=== PATIENT | female | born 1940 | race African-American/Black ===

== ENCOUNTER 2019-08-22 10:16 | Emergency (ER) | payer SELFPAY ==
[~2019-08-22] VITALS: Ht 167.6 cm; Wt 99.8 kg
[2019-08-22 10:23] VITALS: BP 137/83
== END 2019-08-22 11:05 | disposition home or self-care (01) ==
LOC: ER 10:19
DX: I10 Essential (primary) hypertension (principal); E78.5 Hyperlipidemia, unspecified; Z86.73 Personal history of transient ischemic attack (TIA), and cerebral infarction without residual deficits; Z76.0 Encounter for issue of repeat prescription

== ENCOUNTER 2024-06-29 16:22 | Inpatient (IN) | payer MEDICAID, OTHER ==
[~2024-06-29] VITALS: Ht 172.7 cm; Wt 83.1 kg
--- NOTE | 2024-06-29 18:08 | ED.PDOC ---
SOB-HPI HPI Comments 83Y F with PMHx CVA, HTN, and HLD presents to ED via EMS for chief complaint SOB [id number] with cough, congestion, and chest pain. Pt states chest pain is left- sided and non-radiating. Pt describes chest pain as pressure. Pt does not use oxygen supplementation at home. History is limited due to the patient's dysarthria from her prior stroke. Chief Complaint: Shortness of Breath Time Seen by MD: 18:00 Primary Care Provider: unknown Reviewed notes: Nurses Notes, Client Application Support Specialist Notes, Medications, Allergies Information Source: Patient, Emergency Med Personnel Mode of Arrival: EMS Brought in by: EMS Severity: Moderate Timing: Weeks Duration: Since onset Context: At Rest PE Risk Factors: None History of: None Prehospital treatment: 12 Lead EKG Modifying Factors: Nothing Associated Signs and Symptoms: Cough, Nasal Congestion, Chest Pain Quality: Pressure Radiation: No Radiation Location: Chest (L) If cough with SOB: Productive Past Medical History PAST MEDICAL HISTORY: CVA (With residual right-sided deficit), High Lipids, HTN Past Medical History (Other): AFib Surgical History: Denies all surgeries RN TRAVELING History: Denies all RN TRAVELING Hx Family History Family History: Reviewed,noncontributory to illness Social History Smoker: Non-Smoker Alcohol: Unknown Drugs: Unknown Lives In: Home Constitutional: denies: chills, diaphoresis, fatigue, fever, malaise, sweats, weakness, others EENTM: reports: nose congestion; denies: blurred vision, double vision, ear bleeding, ear discharge, ear drainage, ear pain, ear ringing, eye pain, eye redness, hearing loss, mouth pain, mouth swelling, nasal discharge, nose bleeding, nose pain, photophobia, tearing, throat pain, throat swelling, voice changes, others Respiratory: reports: cough, shortness of breath; denies: hemoptysis, orthopnea, SOB at rest, SOB with excertion, stridor, wheezing, others Cardiovascular: reports: chest pain; denies: dizzy spells, diaphoresis, Dyspnea on exertion, edema, irregular heart beat, left arm pain, lightheadedness, palpitations, PND, syncope, others Gastrointestinal: denies: abdomen distended, abdominal pain, blood streaked bowels, constipated, diarrhea, dysphagia, difficulty swallowing, hematemesis, melena, nausea, poor appetite, poor fluid intake, rectal bleeding, rectal pain, vomiting, others Genitourinary: denies: abnormal vagina bleeding, burning, dyspareunia, dysuria, flank pain, frequency, hematuria, incontinence, pain, , vagina discharge, urgency, others Neurological: denies: dizziness, fainting, headache, left sided numbness, left sided weakness, numbness, paresthesia, pre-existing deficit, right sided numbness, right sided weakness, seizure, speech problems, tingling, tremors, weakness, others Musculoskeletal: denies: back pain, gout, joint pain, joint swelling, muscle pain, muscle stiffness, neck pain, others Integumetry: denies: bruises, change in color, change in hair/nails, dryness, laceration, lesions, lumps, rash, wounds, others Allergic/Immunocompromised: denies: Difficulty Healing, Frequent Infections, Hives, Itching, others Hematologic/Lymphatic: denies: anemia, blood clots, easy bleeding, easy bruising, swollen glands, others Endocrine: denies: excessive hunger, excessive sweating, excessive thirst, excessive urination, flushing, intolerance to cold, intolerance to heat, unexplained weight gain, unexplained weight loss, others Psychiatric: denies: anxiety, bipolar disorder, depression, hopeless, panic disorder, schizophrenia, sleepless, suicidal, others All Other Systems: Reviewed and Negative Physical Exam General Appearance: No Apparent Distress HEENT: Other (Moist mucous membranes, pupils symmetric, right facial droop) Neck: Full Range of Motion, Normal Inspection Respiratory: No Respiratory Distress, Rales (Bilateral bases and mid lung yang) Cardiovascular: No JVD, Regular Rate/Rhythm Breast Exam: Deferred Gastrointestinal: Non Tender, Soft Genitalia: Deferred Pelvic: Deferred Rectal: Deferred Extremities: No calf tenderness, Non-tender, No pedal edema Musculoskeletal : Apperance: Normal Neurologic: Alert, Normal Affect, Normal Mood, Other (Chronic Right upper and lower extremity motor deficit, right facial droop, dysarthria) Cerebellar Function: NOT DONE Reflexes: NOT DONE Skin: Dry, Normal Color, Warm Lymphatic: NOT DONE EKG EKG : Comments AFib, rate 82, QRS prolonged at 138, QTC prolonged at 515, left axis deviation, right bundle-branch block and left anterior fascicular block, nonspecific T changes. Was a procedure done? Was a procedure done?: No Differential Dx Differential Diagnosis: CHF, COPD, Hyperventilation, Myocardial infarction, Pneumonia, Pulmonary Embolism, Respiratory Distress, URI X-Ray, Labs, Meds, VS Vital Signs Date Time Temp Pulse Resp B/P (MAP) Pulse Ox O2 Delivery O2 Flow Rate FiO2 06/29/24 18:30 16 89 Room Air* 0 21 06/29/24 16:33 82 06/29/24 16:28 99.6 96 20 146/90 (108) 96 Lab Test 06/29/24 20:50 06/29/24 20:01 06/29/24 18:40 Range/Units Sodium Level 139 136-145 mmol/L Potassium Level 3.0 L 3.5-5.1 mmol/L Chloride Level 102 98-107 mmol/L Carbon Dioxide Level 28 20-31 mmol/L Anion Gap 9 5-15 Blood Urea Nitrogen 6 L 9-23 mg/dL Creatinine 0.58 0.550-1.02 mg/dL Glomerular Filtration Rate Calc 89 >90 mL/min BUN/Creatinine Ratio 10.3 10.0-20.0 Serum Glucose 108 H 74-106 mg/dL Lactic Acid Level 2.7 *H 2.9 *H 0.4-2.0 mmol/L Calcium Level 9.1 8.7-10.4 mg/dL Troponin I High Sensitivity 6 6 </=34 ng/L White Blood Count 5.6 4.4-10.8 10^3/uL Red Blood Count 4.84 4.0-5.20 10^6/uL Hemoglobin 15.0 12.2-16.2 g/dL Hematocrit 46.0 36.0-46.0 % Mean Corpuscular Volume 95.2 80.0-100.0 fL Mean Corpuscular Hemoglobin 31.1 28.0-32.0 pg Mean Corpuscular Hemoglobin Concent 32.7 32.0-36.0 g/dL Red Cell Distribution Width 14.2 11.8-14.3 % Platelet Count 228 140-450 10^3/uL Mean Platelet Volume 9.5 6.9-10.8 fL Neutrophils (%) (Auto) 60.2 37.0-80.0 % Lymphocytes (%) (Auto) 29.0 10.0-50.0 % Monocytes (%) (Auto) 9.9 0.0-12.0 % Eosinophils (%) (Auto) 0.5 0.0-7.0 % Basophils (%) (Auto) 0.4 0.0-2.0 % Neutrophils # (Auto) 3.4 1.6-8.6 10 ^3/uL Lymphocytes # (Auto) 1.6 0.4-5.4 10 ^3/uL Monocytes # (Auto) 0.6 0-1.3 10 ^3/uL Eosinophils # (Auto) 0 0-0.8 10 ^3/uL Basophils # (Auto) 0 0-0.2 10 ^3/uL Nucleated Red Blood Cells 0.2 % B-Type Natriuretic Peptide 78.45 0-100 pg/mL Current Medications Medications (Trade) Dose Ordered Sig/Marcelo Route Start Time Stop Time Status Last Admin Albuterol (Ventolin Medneb) 2.5 mg ONCE ONCE NEB 06/29/24 17:45 06/29/24 17:46 DC 06/29/24 18:27 Ipratropium [place] (Atrovent Medneb) 0.5 mg ONCE ONCE NEB 06/29/24 17:45 06/29/24 17:46 DC 06/29/24 18:27 [place] [address] Ph: [phone] DIAGNOSTIC IMAGING Diagnostic Imaging Report : [id number] Signed PATIENT: NENITA PAULAACCT: [id number] UNIT: [id number] : 1940 LOC: ER ROOM / BED: / AGE / SEX: 83 / F ADM STATUS: REG ER SERVICE 41 ORDERING PHYSICIAN: ALVARO WATKINS MD PROCEDURE(s): CXRP - CHEST PORTABLE REASON: sob ORDER NUMBER(s): [id number], ACCESSION NUMBER(s): [id number] EXAM: XR Chest, 1 View CLINICAL INDICATION: sob TECHNIQUE: Frontal view of the chest. COMPARISON: None FINDINGS: LUNGS AND PLEURAL SPACES: Pulmonary venous congestion. No consolidation. No pneumothorax. HEART: Unremarkable. No cardiomegaly. MEDIASTINUM: Unremarkable. Normal mediastinal contour. BONES/JOINTS: Unremarkable. No acute fracture. OTHER FINDINGS: . . IMPRESSION: Pulmonary venous congestion. HS:Y ATED BY: LARRY ISRAEL MD DICTATED DATE/TIME: 06/29/241839 SIGNED BY: LARRY ISRAEL MD SIGNED DATE/TIME: 06/29/241839 CC: X-Ray, Labs, Meds, VS Comment 83-year-old female with a history of CVA, hypertension, hyperlipidemia and AFib brought in by EMS complaining of chest pain and shortness a breath Vitals remarkable for temperature 99.6, BP 146/90, and hypoxia on room air at 89%. Exam remarkable for bilateral rales Rhythm strip independently interpreted by me: AFib, rate 82, no PVCs. Chest x-ray: IMPRESSION: Pulmonary venous congestion. CBC and metabolic panel unremarkable, 2 serial troponins negative, BNP 78.45, lactate 2.9 Patient treated with the following in the ED: Albuterol 5 mg/Atrovent 0.5 mg nebulized, Tylenol 650 mg p.o., Lasix 40 mg IV On re-evaluation, patient is resting comfortably on nasal cannula oxygen. Oxygen saturation is 96%. Plan is to admit the patient for respiratory support as needed. Time of 1ST Reevaluation: 18:30 Reevaluation 1ST: Unchanged Patient Education/Counseling: Diagnosis, Treatment Family Education/Counseling: No Family Present Departure 1 Departure Time of Disposition: 22:01 Impression: Primary Impression: CHF exacerbation Qualified Codes: I50.9 - Heart failure, unspecified Additional Impression: Hypoxia Disposition: ADMITTED INPATIENT Admit to: Tele Condition: Guarded Critical Care Note Critical Care Time?: No Stability Stability form required: No Heart Score Heart Score: Heart Score Response (Comments) Value History N/A 0 EKG N/A 0 Age N/A 0 Risk Factors N/A 0 Troponin N/A 0 Total 0 I personally scribed for ALVARO WATKINS MD ([email or web address]) on 06/29/24 at 18:08. Electronically submitted by Frieda Tejeda ([email or web address]). I personally scribed for ALVARO WATKINS MD ([email or web address]) on 06/29/24 at 19:29. Electronically submitted by Ismael Brown ([email or web address]). ALVARO WATKINS MD Jun 29, 2024 18:08
[2024-06-29] MEDS: IPRATROPIUM BROM 0.5 MG/2.5ML INH SOL NEB ONE (18:27)
[2024-06-29] MEDS: ALBUTEROL SULF 2.5 MG/0.5ML(0.5%) NEB SOLN NEB ONE (18:27)
--- NOTE | 2024-06-29 18:42 | DVH ---
EXAM: XR Chest, 1 View CLINICAL INDICATION: sob TECHNIQUE: Frontal view of the chest. COMPARISON: None FINDINGS: LUNGS AND PLEURAL SPACES: Pulmonary venous congestion. No consolidation. No pneumothorax. HEART: Unremarkable. No cardiomegaly. MEDIASTINUM: Unremarkable. Normal mediastinal contour. BONES/JOINTS: Unremarkable. No acute fracture. OTHER FINDINGS: . . IMPRESSION: Pulmonary venous congestion. HS:Y
[2024-06-29 19:02] LABS: Basophils # (auto) 0 10 ^3/uL (0-0.2); Basophils % (auto) 0.4 % (0.0-2.0); Eosinophils # (auto) 0 10 ^3/uL (0-0.8); Eosinophils % (auto) 0.5 % (0.0-7.0); Lymphocytes # (auto) 1.6 10 ^3/uL (0.4-5.4); Mean Corpuscular Hemoglobin 31.1 pg (28.0-32.0); Mean Corpuscular Hgb Conc. 32.7 g/dL (32.0-36.0); Mean Corpuscular Volume 95.2 fL (80.0-100.0); Monocytes # (auto) 0.6 10 ^3/uL (0-1.3); Monocytes % (auto) 9.9 % (0.0-12.0); Neutrophils # (auto) 3.4 10 ^3/uL (1.6-8.6); Neutrophils % (auto) 60.2 % (37.0-80.0); Nucleated Red Blood Cells % 0.2 %; Platelet Count (auto) 228 10^3/uL (140-450); Red Blood Cells 4.84 10^6/uL (4.0-5.20); Red Cell Distribution Width 14.2 % (11.8-14.3); White Blood Cell 5.6 10^3/uL (4.4-10.8)
[2024-06-29 20:29] LABS: Lactic Acid w/Reflex 2.9 mmol/L (0.4-2.0)
[2024-06-29 21:19] LABS: Anion Gap 9 (5-15)
[2024-06-29 21:31] LABS: BUN/Creatinine Ratio 10.3 (10.0-20.0); Blood Urea Nitrogen 6 mg/dL (9-23); Calcium 9.1 mg/dL (8.7-10.4); Carbon Dioxide 28 mmol/L (20-31); Chloride 102 mmol/L (98-107); Glucose 108 mg/dL (74-106); Sodium 139 mmol/L (136-145)
[2024-06-29] MEDS: FUROSEMIDE 40 MG/4 ML VIAL IV ONE (21:45)
[2024-06-29] MEDS ORDERED: ONDANSETRON HCL 4 MG/2 ML VIAL IV PRN (22:15)
[2024-06-29] MEDS ORDERED: ACETAMINOPHEN 325 MG TAB PO PRN (22:15)
[2024-06-29] MEDS ORDERED: ALBUTEROL SULF 2.5 MG/0.5ML(0.5%) NEB SOLN NEB PRN (22:15)
[2024-06-29] MEDS ORDERED: HYDROcodone-ACET 5/325MG TAB PO PRN (22:15)
[2024-06-29 22:36] VITALS: BP 146/90; PULSE 82; RESP 16; TEMP 99.6; O2SAT 90
--- NOTE | 2024-06-29 22:44 | DVHHP2 ---
History of Present Illness Reason for Visit: Shortness of breath History of Present Illness 83-year-old female presents for evaluation of shortness for breath. Patient reports a two week history of worsening shortness for breath and with associated nonproductive cough. Patient is bed ridden secondary to CVA three years ago wi th right hemiparesis and speech difficulty. She also reports mild left-sided chest pain that is nonradiating. No fever or chills. No other acute complaints reported. Past Medical History Hypertension, dyslipidemia and CVA Past Surgical History None Family History Noncontributory Smoke: No ALCOHOL: none Drugs: None Lives: with Family Review of Systems Review of Systems Review of systems are currently negative otherwise addressed in HPI. Allergies: Coded Allergies: NO KNOWN ALLERGIES (Unverified , 08/22/19) Medications Current Medications Medications Dose Ordered Sig/Marcelo Route Start Time Stop Time Status Last Admin Dose Admin Metoprolol Tartrate 12.5 mg BID PO 06/30/24 10:00 UNV Lisinopril 10 mg DAILY PO 06/30/24 10:00 UNV Furosemide 40 mg DAILY PO 06/30/24 10:00 UNV Atorvastatin Calcium 20 mg HS PO 06/30/24 22:00 UNV Clopidogrel Bisulfate 75 mg DAILY PO 06/30/24 10:00 UNV Albuterol 2.5 mg Q6HPRN PRN NEB 06/29/24 22:15 UNV Azithromycin 250 ml @ 125 mls/hr DAILY IV 06/30/24 10:00 UNV Acetaminophen/ Hydrocodone Bitart 1 tab Q4HP PRN PO 06/29/24 22:15 UNV Ondansetron HCl 4 mg Q4HP PRN IV 06/29/24 22:15 UNV Enoxaparin Sodium 40 mg DAILY SC 06/30/24 10:00 UNV Acetaminophen 650 mg Q6HP PRN PO 06/29/24 22:15 UNV Exam Vital Signs Vital Signs Date Time Temp Pulse Resp B/P (MAP) Pulse Ox O2 Delivery O2 Flow Rate FiO2 06/29/24 22:36 99.6 82 16 146/90 90 21 99.6 06/29/24 18:30 Room Air* 0 Exam Gen: 83-year-old female in mild distress Skin: Warm, dry, normal color and texture, no rash. HEENT: Normocephalic atraumatic, mucous membranes moist and pink. Neck: Cervical and supraclavicular nodes normal without enlargement, trachea is midline, thyroid gland is normal without masses. Pulmonary: Diminished breath sounds bilaterally Cardiac: Regular rate and rhythm. No murmur Abdomen: Soft, nontender, nondistended, bowel sounds present all 4 quadrants, no guarding, no rigidity, no organomegaly. Extremities: No cyanosis, clubbing, no edema Neuro: Right-sided deficits from previous CVA and speech difficulty Labs/Xrays ORDERING PHYSICIAN: ALVARO WATKINS MD PROCEDURE(s): CXRP - CHEST PORTABLE REASON: sob ORDER NUMBER(s): [id number], ACCESSION NUMBER(s): [id number] EXAM: XR Chest, 1 View CLINICAL INDICATION: sob TECHNIQUE: Frontal view of the chest. COMPARISON: None FINDINGS: LUNGS AND PLEURAL SPACES: Pulmonary venous congestion. No consolidation. No pneumothorax. HEART: Unremarkable. No cardiomegaly. MEDIASTINUM: Unremarkable. Normal mediastinal contour. BONES/JOINTS: Unremarkable. No acute fracture. OTHER FINDINGS: . . IMPRESSION: Pulmonary venous congestion. HS:Y Labs Test 06/29/24 20:50 06/29/24 20:01 06/29/24 18:40 Range/Units Sodium Level 139 136-145 mmol/L Potassium Level 3.0 L 3.5-5.1 mmol/L Chloride Level 102 98-107 mmol/L Carbon Dioxide Level 28 20-31 mmol/L Anion Gap 9 5-15 Blood Urea Nitrogen 6 L 9-23 mg/dL Creatinine 0.58 0.550-1.02 mg/dL Glomerular Filtration Rate Calc 89 >90 mL/min BUN/Creatinine Ratio 10.3 10.0-20.0 Serum Glucose 108 H 74-106 mg/dL Lactic Acid Level 2.7 *H 0.4-2.0 mmol/L Calcium Level 9.1 8.7-10.4 mg/dL Troponin I High Sensitivity 6 </=34 ng/L White Blood Count 5.6 4.4-10.8 10^3/uL Red Blood Count 4.84 4.0-5.20 10^6/uL Hemoglobin 15.0 12.2-16.2 g/dL Hematocrit 46.0 36.0-46.0 % Mean Corpuscular Volume 95.2 80.0-100.0 fL Mean Corpuscular Hemoglobin 31.1 28.0-32.0 pg Mean Corpuscular Hemoglobin Concent 32.7 32.0-36.0 g/dL Red Cell Distribution Width 14.2 11.8-14.3 % Platelet Count 228 140-450 10^3/uL Mean Platelet Volume 9.5 6.9-10.8 fL Neutrophils (%) (Auto) 60.2 37.0-80.0 % Lymphocytes (%) (Auto) 29.0 10.0-50.0 % Monocytes (%) (Auto) 9.9 0.0-12.0 % Eosinophils (%) (Auto) 0.5 0.0-7.0 % Basophils (%) (Auto) 0.4 0.0-2.0 % Neutrophils # (Auto) 3.4 1.6-8.6 10 ^3/uL Lymphocytes # (Auto) 1.6 0.4-5.4 10 ^3/uL Monocytes # (Auto) 0.6 0-1.3 10 ^3/uL Eosinophils # (Auto) 0 0-0.8 10 ^3/uL Basophils # (Auto) 0 0-0.2 10 ^3/uL Nucleated Red Blood Cells 0.2 % B-Type Natriuretic Peptide 78.45 0-100 pg/mL Assessment/Plan Assessment/Plan Assessment Acute respiratory distress Acute pneumonitis Pulmonary congestion,? Heart failure Electrolyte imbalance CVA with right-sided deficits Bed ridden Plan Admit the patient to Med surge to the hospitalist Resume home medications Echocardiogram pending Azithromycin Med nebs Continue treatment per orders. Plan discussed with: Patient My Orders Orders - EUNICE BARBOUR [facility] Procedure Category Date Status Time Metoprolol Tartrate PHA 06/30/24 Logged Tablet (Lopressor Ta 10:00 Lisinopril Tablet PHA 06/30/24 Logged (Zestril Tablet) 10:00 D-Dimer LAB 06/29/24 In Process 22:12 Furosemide Tablet PHA 06/30/24 Logged (Lasix Tablet) 10:00 Atorvastatin (Lipitor) PHA 06/30/24 Logged 22:00 Clopidogrel Bisulfate PHA 06/30/24 Logged (Plavix) 10:00 Potassium Er Tablet PHA 06/29/24 Logged (Klor-Con Tablet) 22:15 Albuterol Medneb PHA 06/29/24 Logged (Ventolin Medneb) 22:15 Azithromycin 500mg/ PHA 06/30/24 Logged 250ml (Zithromax 50 10:00 Basic Metabolic Panel LAB 06/30/24 Verified 04:00 Admit ADMIT 06/29/24 Transmitted 22:12 Hydrocodone-Acet PHA 06/29/24 Logged 5/325mg Tab ([place] 22:15 Ondansetron Hcl PHA 06/29/24 Logged (Zofran) 22:15 Enoxaparin Sodium PHA 06/30/24 Logged (Lovenox) 10:00 Complete Blood Count LAB 06/30/24 Verified 04:00 Cardiac DIET 06/30/24 Transmitted Diet-2gna,Lofat,Lochol Breakfast Echo 2d Mode Cardiac US 06/29/24 Logged DOP 22:12 Condition: Stable KETTY 06/29/24 In Process 22:12 Acetaminophen Tablet PHA 06/29/24 Logged (Tylenol Tablet) 22:15 Bedrest With Bathroom KETTY 06/29/24 In Process Privileg 22:12 Date of Service: Jun 29, 2024 Billing Provider: EUNICE BARBOUR Common Visit Codes: [id number] INP/OBS CARE (HIGH) EUNICE BARBOUR Jun 29, 2024 22:44
[2024-06-30] MEDS: POTASSIUM CHL 20 Meq TABLET PO ONE (02:02)
[2024-06-30] MEDS: ACETAMINOPHEN 325 MG TAB PO ONE (02:02)
[2024-06-30 02:25] VITALS: PULSE 75; RESP 26; O2SAT 94
[2024-06-30] MEDS: cefTRIAXone 1GM/50ML D5W 50 ML IV ONE ×2 (02:35→14:48)
[2024-06-30 04:16] LABS: Basophils # (auto) 0 10 ^3/uL (0-0.2); Basophils % (auto) 0.7 % (0.0-2.0); Eosinophils # (auto) 0 10 ^3/uL (0-0.8); Eosinophils % (auto) 0.5 % (0.0-7.0); Hematocrit 40.7 % (36.0-46.0); Hemoglobin 13.7 g/dL (12.2-16.2); Lymphocytes # (auto) 1.2 10 ^3/uL (0.4-5.4); Lymphocytes % (auto) 22.6 % (10.0-50.0); Mean Corpuscular Hemoglobin 31.2 pg (28.0-32.0); Mean Corpuscular Hgb Conc. 33.6 g/dL (32.0-36.0); Mean Corpuscular Volume 92.9 fL (80.0-100.0); Monocytes # (auto) 0.6 10 ^3/uL (0-1.3); Monocytes % (auto) 11.5 % (0.0-12.0); Neutrophils # (auto) 3.4 10 ^3/uL (1.6-8.6); Neutrophils % (auto) 64.7 % (37.0-80.0); Platelet Count (auto) 232 10^3/uL (140-450); Red Blood Cells 4.39 10^6/uL (4.0-5.20); Red Cell Distribution Width 13.8 % (11.8-14.3); White Blood Cell 5.2 10^3/uL (4.4-10.8)
[2024-06-30 04:24] LABS: Chloride 105 mmol/L (98-107); Potassium 3.8 mmol/L (3.5-5.1); Sodium 140 mmol/L (136-145)
[2024-06-30 04:25] LABS: Anion Gap 8 (5-15); Carbon Dioxide 27 mmol/L (20-31)
[2024-06-30 04:26] LABS: Calcium 8.8 mg/dL (8.7-10.4)
[2024-06-30] MEDS: AZITHROMYCIN 500MG/ 250ML 250 ML IV ONE (04:30)
[2024-06-30 04:43] LABS: Blood Urea Nitrogen 8 mg/dL (9-23); Glucose 154 mg/dL (74-106)
[2024-06-30 05:00] LABS: COVID19 ANTIGEN SOFIA FIA NEGATIVE (NEGATIVE); Rapid Influenza A Negative (Negative); Rapid Influenza B Negative (Negative)
[2024-06-30 07:30] VITALS: PULSE 80; RESP 16; O2SAT 95
[2024-06-30 09:55] VITALS: O2SAT 93
[2024-06-30] MEDS ORDERED: AZITHROMYCIN 500MG/ 250ML 250 ML IV SCH ×2 (10:00→13:30)
[2024-06-30] MEDS: LISINOPRIL 5 MG TAB PO SCH (12:25)
[2024-06-30] MEDS: FUROSEMIDE 40 MG TAB PO SCH (12:25)
[2024-06-30] MEDS: CLOPIDOGREL BISULFATE 75 MG TAB PO SCH (12:26)
[2024-06-30] MEDS: METOPROLOL TARTRATE 25 MG TAB PO SCH (12:29)
[2024-06-30] MEDS: ENOXAPARIN SOD 40 MG/0.4 ML SYRINGE SC SCH (12:32)
[2024-06-30] MEDS ORDERED: DOXYCYCLINE 100MG/100ML 100 ML IV SCH (13:30)
--- NOTE | 2024-06-30 13:48 | ECG ---
[facility] Test Date: 2024-06-29 Test Time: 16:33:18 Pat Name: NENITA CANALES Department: ER Room: 0221 Gender: F Attraction Attendant: EMA : 1940 Requested By: EMERGENCY EMERGENCY Order Number: [id number] Reading MD: Sanket Cosme Measurements Intervals [place] Rate: 82 P: 0 NJ: 0 QRS: -56 QRSD: 138 T: 48 QT: 443 QTc: 518 Interpretive Statements Atrial fibrillation RBBB and LAFB Left ventricular hypertrophy Electronically Signed On 07-05-2024 15:04:47 PST by Sanket Cosme Please click the below link to view image of tracing.
--- NOTE | 2024-06-30 14:08 | DVHPNRES ---
Progress Note Date Seen: Jun 30, 2024 Resident Creating Document: [facility] RESIDENT Medical Necessity Reason Pt with a Central, PICC or Fol: No Subjective Review of Systems This is a 83 years old bed-bound female past medical history of hypertension, dyslipidemia, CVA with right-sided weakness to the ED for evaluation of shortness of Breath. Patient reports a two week history of worsening shortness for breath and with associated nonproductive cough and left sided non radiating chest pain. 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 Constitutional: No: Fever, Chills, Sweats, Weakness, Malaise, Other Eyes: No: Pain, Vision change, Conjunctivae inflammation, Eyelid inflammation, Other, Redness ENT: No: Ear pain, Ear discharge, Nose pain, Nose discharge, Nose congestion, Mouth pain, Mouth swelling, Throat pain, Throat swelling, Other Respiratory: Shortness of breath, improving No: Cough, Dry,Wheezing, Hemoptysis, Pleuritic Pain, Sputum, Wheezing, Other Cardiovascular: No: Chest Pain, Palpitations, Orthopnea, Paroxysmal Noc. Dyspnea, Edema, Lt Headedness, Other Gastrointestinal: No: Nausea, Vomiting, Abdominal Pain, Diarrhea, Constipation, Melena, Hematochezia, Other Musculoskeletal: No: other, neck pain, shoulder pain, arm pain, back pain, hand pain, leg pain, foot pain Neurological:; Rt sided weakness, speech difficulty, no Numbness, Incoordination, Confusion, Seizures Objective vital signs Vital Sign Date Time Temp Pulse Resp B/P (MAP) Pulse Ox O2 Delivery O2 Flow Rate FiO2 06/30/24 13:38 83 141/91 06/30/24 12:15 20 97 06/30/24 09:57 97.7 97.7 06/30/24 07:30 Nasal Cannula* 2 28 Total Intake and Output 06/29/24 06/29/24 06/30/24 15:00 23:00 07:00 Intake Total 300 ml Balance 300 ml medications Current Medications Medications Dose Ordered Sig/Marcelo Route Start Time Stop Time Status Last Admin Dose Admin Metoprolol Tartrate 12.5 mg BID PO 06/30/24 10:00 06/30/24 12:29 12.5 MG Lisinopril 10 mg DAILY PO 06/30/24 10:00 06/30/24 12:25 10 MG Furosemide 40 mg DAILY PO 06/30/24 10:00 06/30/24 12:25 40 MG Atorvastatin Calcium 20 mg HS PO 06/30/24 22:00 Clopidogrel Bisulfate 75 mg DAILY PO 06/30/24 10:00 06/30/24 12:26 75 MG Albuterol 2.5 mg Q6HPRN PRN NEB 06/29/24 22:15 Acetaminophen/ Hydrocodone Bitart 1 tab Q4HP PRN PO 06/29/24 22:15 Ondansetron HCl 4 mg Q4HP PRN IV 06/29/24 22:15 Enoxaparin Sodium 40 mg DAILY SC 06/30/24 10:00 06/30/24 12:32 40 MG Acetaminophen 650 mg Q6HP PRN PO 06/29/24 22:15 Azithromycin 250 ml @ 125 mls/hr DAILY IV 06/30/24 13:30 UNV Ceftriaxone Sodium 50 ml @ 100 mls/hr DAILY@09 IV 07/01/24 09:00 Doxycycline Monohydrate 100 mg Q12HR PO 06/30/24 22:00 Examination Physical examination: General Appearance: Alert, Oriented X3, Cooperative, on room air HEENT: Atraumatic, PERRLA, EOMI, Mucous membrane moist/pink Respiratory: Clear to auscultation, Normal air movement Cardiovascular: Regular rate, Normal S1, Normal S2, No murmurs, no chest wall tenderness Abdominal: Normal bowel sounds, Soft, No tenderness, No hepatospenomegaly, No masses Extremities: No clubbing, No cyanosis, No edema, Normal pulses, No tenderness/swelling Skin: No rashes, No breakdown, No significant lesion Neuro: Rt sided hemiparesis, dysarthria, Strength at 5/5 X2 ext, Normal tone, Sensation intact. Psych/Mental Status: Mental status NL, Mood NL laboratory and microbiology Laboratory Tests 06/30/24 03:59 Test 06/30/24 03:59 Range/Units Serum Glucose 154 H 74-106 mg/dL Labs and/or images reviewed: Labs reviewed by me, Image(s) reviewed by me Problem List/Assessment/Plan Problem List/Assessment/Plan Assessment and plan: Acute hypoxic respiratory failure likely secondary to community-acquired Gram-positive/Gram-negative pneumonia Community acquired Gram-positive/Gram-negative pneumonia SIRS/Sepsis secondary to above Lactic acidosis - Patient was initially on 2 L oxygen with saturation 97% and now on room air - Duoneb with albuterol and ipratropium q.6 p.r.n. - Discontinued IV azithromycin due to QT prolongation - IV ceftriaxone 1 g daily and doxycycline 100 mg p.o. b.i.d. - Chest xray revealed Pulmonary venous congestion - Frusemide 40 mg p.o. daily - BNP is normal and echo pending - Ordered Doppler scan of the lower extremity to exclude the possibility of DVT Prediabetic, HbA1C 5.9% - Counseled patient regarding low carb diet, lifestyle modification and physical exercise History of CVA with right-sided hemiparesis, dysarthria - Continue aspirin 81 mg p.o. daily, atorvastatin 20 mg daily and Plavix 75 mg daily - PT evaluation Hypertensive heart disease - Lisinopril 10 mg p.o. daily and metoprolol tartrate 12.5 mg b.i.d. Diet - Low-sodium diet PUD prophylaxis - Pepcid 20 mg daily DVT prophylaxis - Lovenox 40 mg SC daily Code status - Full code Plan discussed with Dr. Lowe Plan discussed with: Patient, Other My Orders My Orders Orders - OLE [facility] Procedure Category Date Status Time Ceftriaxone 1gm/50ml PHA 07/01/24 In Process D5w (Rocephin) 09:00 Bilat Lower Dvt US 06/30/24 Logged 13:28 Doxycycline Tablet PHA 06/30/24 In Process (Vibramycin Tablet) 22:00 Urinalysis LAB 06/30/24 Uncollected 13:34 Lactic Acid W/ Reflex LAB 06/30/24 Logged Order 13:35 Date of Service: Jun 30, 2024 Billing Provider: IFTIKHAR MORIN MD Common Visit Codes: [id number] INP/OBS CARE(HIGH) [facility] Jun 30, 2024 14:08 IFTIKHAR MORIN MD Jul 02, 2024 15:56
[2024-06-30] MEDS: DOXYCYCLINE 100 MG TAB/CAP PO ONE (14:48)
--- NOTE | 2024-06-30 16:24 | DVH ---
BILATERAL LOWER EXTREMITY VENOUS DOPPLER CLINICAL HISTORY: To exclude DVT Technique: Duplex Doppler evaluation of the deep venous systems of both lower extremities from the co mmon femoral veins to the popliteal veins including color Doppler and spectral/pulsed waveform analys is was performed. COMPARISON: None FINDINGS: There is nonocclusive thrombus in the right popliteal vein which is incompletely compressible. The right and left common femoral, superficial femoral, posterior tibial and left popliteal, veins a ppear patent with normal augmentation, phasicity, compressibility. IMPRESSION: 1. Nonocclusive thrombus in the right popliteal vein. 2. There is no sonographic evidence for DVT in the right lower extremity. HS:Y
[2024-06-30] MEDS: IOHEXOL 350 MG/ML 100ML IJ ONE (16:29)
--- NOTE | 2024-06-30 18:05 | DVH ---
EXAM: CT CT ANGIO CHEST CONTRAST History: To exclude PE Comparison Study: None available TECHNIQUE: A digital music box mechanic image was obtained. During the uneventful, intravenous administration of c ontrast material, multislice data acquisition was obtained through the chest. 3-D postprocessing is performed by technologist including MIP imaging Radiation Dose : CTDI vol 29.6 mGy, DLP 715.41 mGy*cm. Findings: Lungs: Bilateral lower lobe traction bronchiectasis, left greater than right. Pleura: Unremarkable Heart/Great vessels: Cardiomegaly. No pericardial effusion. No pulmonary embolism, aneurysm, or diss ection. Mediastinum: Small hiatal hernia. Soft tissues/Bones: Moderate multilevel degenerative changes of the thoracic spine The partially visualized upper abdomen is within normal limits. Impression: 1. No evidence of pulmonary embolism, aortic aneurysm, or dissection. 2. Cardiomegaly.
[2024-06-30 19:40] VITALS: O2SAT 98
[2024-06-30 21:34] VITALS: O2SAT 98
[2024-06-30] MEDS: DOXYCYCLINE 100 MG TAB/CAP PO SCH (22:00)
[2024-06-30] MEDS: ENOXAPARIN SOD 100 MG/1 ML SYRINGE SC SCH (22:00)
[2024-06-30] MEDS: ATORVASTATIN 20 MG TAB PO SCH (22:00)
[2024-07-01] VITALS (9 sets, daily range): BP systolic 90–124; BP diastolic 56–80; PULSE 67–80; RESP 14–18; TEMP 97.5–99.4; O2SAT 90–98
[2024-07-01] MEDS: FAMOTIDINE 20 MG TAB PO SCH (09:11)
[2024-07-01] MEDS: cefTRIAXone 1GM/50ML D5W 50 ML IV SCH (09:13)
--- NOTE | 2024-07-01 15:31 | DVH ---
EXAM: CT HEAD WITHOUT CONTRAST HISTORY: Altered mental status COMPARISON: None TECHNIQUE: Axial images of the head were obtained and reformatted in coronal and sagittal planes. All CT scans at this medical facility are performed using dose modulation techniques as appropriate t o a performed exam including the following: Automated exposure control was utilized; adjustment of th e MA and/or KV according to patient size; and use of iterative reconstruction technique. CT Dose: CTDI volume is 57 mGy. Dose-length product is 1123 mGy*cm FINDINGS: There is no evidence of acute intracranial hemorrhage, mass, mass effect midline shift. There is no h ydrocephalus or extra-axial fluid collection. There is a chronic infarct extending from the left francesca na radiata into the left basal ganglia with mild ex vacuo dilatation of the left lateral ventricle. T here are moderate chronic small-vessel white matter ischemic changes. The visualized paranasal sinuses and mastoid air cells are clear. The calvarium is intact. IMPRESSION: 1. No acute intracranial process. 2. Chronic ischemic changes as described above. HS:Y
[2024-07-01 16:11] LABS: Base Excess 3.6 mmol/L (-2.0-3.0)
[2024-07-01] MEDS ORDERED: FLUO1TAB12 PO (16:20)
[2024-07-01] MEDS ORDERED: PANT40T PO (16:20)
[2024-07-01] MEDS ORDERED: GABA-1308 PO (16:20)
[2024-07-01] MEDS ORDERED: METH-1181 PO (16:20)
[2024-07-01] MEDS ORDERED: SIME1CAP PO (16:20)
--- NOTE | 2024-07-01 18:50 | DVHPNRES ---
Progress Note Date Seen: Jul 01, 2024 Resident Creating Document: OLE LE RESIDENT Medical Necessity Reason Pt with a Central, PICC or Fol: No Subjective Review of Systems This is a 83 years old bed-bound female past medical history of hypertension, dyslipidemia, CVA with right-sided weakness to the ED for evaluation of shortness of Breath. Patient reports a two week history of worsening shortness for breath and with associated nonproductive cough and left sided non radiating chest pain. 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 Pt was seen and examined on the bedside. she is alert, irritable. CT scan revealed no acute intracranial abnormality and ABG is normal . PT evaluated the patient and recommended home health on discharge. Objective vital signs Vital Sign Date Time Temp Pulse Resp B/P (MAP) Pulse Ox O2 Delivery O2 Flow Rate FiO2 07/01/24 17:00 99.0 79 16 111/64 (80) 90 99.0 07/01/24 09:41 Nasal Cannula* 1 24 medications Current Medications Medications Dose Ordered Sig/Marcelo Route Start Time Stop Time Status Last Admin Dose Admin Metoprolol Tartrate 12.5 mg BID PO 06/30/24 10:00 07/01/24 09:12 12.5 MG Lisinopril 10 mg DAILY PO 06/30/24 10:00 07/01/24 09:12 10 MG Furosemide 40 mg DAILY PO 06/30/24 10:00 07/01/24 09:11 40 MG Atorvastatin Calcium 20 mg HS PO 06/30/24 22:00 06/30/24 22:00 20 MG Clopidogrel Bisulfate 75 mg DAILY PO 06/30/24 10:00 07/01/24 09:12 75 MG Albuterol 2.5 mg Q6HPRN PRN NEB 06/29/24 22:15 Acetaminophen/ Hydrocodone Bitart 1 tab Q4HP PRN PO 06/29/24 22:15 Ondansetron HCl 4 mg Q4HP PRN IV 06/29/24 22:15 Acetaminophen 650 mg Q6HP PRN PO 06/29/24 22:15 Azithromycin 250 ml @ 125 mls/hr DAILY IV 06/30/24 13:30 UNV Ceftriaxone Sodium 50 ml @ 100 mls/hr DAILY@09 IV 07/01/24 09:00 07/01/24 09:13 100 MLS/HR Doxycycline Monohydrate 100 mg Q12HR PO 06/30/24 22:00 07/01/24 09:11 100 MG Famotidine 20 mg DAILY PO 07/01/24 10:00 07/01/24 09:11 20 MG Enoxaparin Sodium 70 mg Q12HR SC 06/30/24 22:00 07/01/24 09:23 70 MG Examination Physical examination: General Appearance: Alert, Oriented X3, Cooperative, on room air HEENT: Atraumatic, PERRLA, EOMI, Mucous membrane moist/pink Respiratory: Clear to auscultation, Normal air movement Cardiovascular: Regular rate, Normal S1, Normal S2, No murmurs, no chest wall tenderness Abdominal: Normal bowel sounds, Soft, No tenderness, No hepatospenomegaly, No masses Extremities: No clubbing, No cyanosis, No edema, Normal pulses, No tenderness/swelling Skin: No rashes, No breakdown, No significant lesion Neuro: Rt sided hemiparesis, dysarthria, Strength at 5/5 X2 ext, Normal tone, Sensation intact. Psych/Mental Status: Mental status NL, Mood NL laboratory and microbiology Laboratory Tests 06/30/24 03:59 Test 06/30/24 03:59 Range/Units Serum Glucose 154 H 74-106 mg/dL Microbiology Date/Time Source Procedure Growth Status 06/29/24 18:40 Blood Blood Culture - Preliminary NO GROWTH AFTER 24 HOURS OF INCUBATION. Resulted Labs and/or images reviewed: Labs reviewed by me, Image(s) reviewed by me Problem List/Assessment/Plan Problem List/Assessment/Plan Assessment and plan: Acute hypoxic respiratory failure likely secondary to community-acquired Gram-positive/Gram-negative pneumonia Community acquired Gram-positive/Gram-negative pneumonia SIRS/Sepsis secondary to above Lactic acidosis Acute DVT of rt Leg - Patient is on 1 L oxygen with saturation 97% and now on room air - Doppler scan of the lower extremity revealed nonocclusive thrombus in the right popliteal vein - CT angio demonstrated no evidence of pulmonary embolism. - Lovenox 1 mg/ kg sc 12 hourly - Duoneb with albuterol and ipratropium q.6 p.r.n. - Discontinued IV azithromycin due to QT prolongation - IV ceftriaxone 1 g daily and doxycycline 100 mg p.o. b.i.d. - Chest xray revealed Pulmonary venous congestion - Frusemide 40 mg p.o. daily - BNP is normal and echo pending Prediabetic, HbA1C 5.9% - Counseled patient regarding low carb diet, lifestyle modification and physical exercise History of CVA with right-sided hemiparesis, dysarthria - Continue aspirin 81 mg p.o. daily, atorvastatin 20 mg daily and Plavix 75 mg daily - PT recommended home health for the patient on discharge. Hypertensive heart disease - Lisinopril 10 mg p.o. daily and metoprolol tartrate 12.5 mg b.i.d. Diet - Low-sodium diet PUD prophylaxis - Pepcid 20 mg daily Code status - Full code Plan discussed with Dr. Lowe Plan discussed with: Patient, Other My Orders My Orders Orders - OLE LE Procedure Category Date Status Time Abg W/ Co-Ox RT 07/01/24 Logged 14:43 Ammonia LAB 07/01/24 Logged 14:[address] 07/01/24 Resulted 14:43 * Wound Consult CONS 07/01/24 Transmitted 16:28 * Dietary Consult CONS 07/01/24 Transmitted 16:28 Date of Service: Jul 01, 2024 Billing Provider: IFTIKHAR MORIN MD Common Visit Codes: [id number] INP/OBS CARE(HIGH) OLE LE RESIDENT Jul 01, 2024 18:50 IFTIKHAR MORIN MD Jul 02, 2024 16:23
[2024-07-02 01:00] VITALS: BP 102/67; PULSE 89; RESP 17; TEMP 99.1; O2SAT 96
[2024-07-02 05:00] VITALS: BP 103/56; PULSE 80; RESP 17; TEMP 98.5; O2SAT 93
[2024-07-02 09:00] VITALS: BP 109/64; PULSE 69; RESP 18; TEMP 98.9; O2SAT 96
[2024-07-02] MEDS ORDERED: APIX5TAB PO (09:17)
[2024-07-02] MEDS ORDERED: DOXY1CAP57 PO (09:17)
[2024-07-02] MEDS ORDERED: ATOR20TA PO (09:17)
[2024-07-02] MEDS ORDERED: ASPI1TAB20 PO (09:17)
[2024-07-02] MEDS ORDERED: LISI10TA34 PO (09:17)
[2024-07-02] MEDS ORDERED: METO25TA5 PO (09:17)
[2024-07-02] MEDS ORDERED: FAMO20TA10 PO (09:17)
--- NOTE | 2024-07-02 09:18 | DVHDSRES ---
Discharge Summary Date of Admission Resident Creating Document: OLE LE RESIDENT Jun 29, 2024 at 22:12 Date of Discharge: Jul 02, 2024 Labs/Diagnostic Data: Laboratory Results Test 07/01/24 19:10 07/01/24 16:05 06/30/24 14:36 06/30/24 03:59 Ammonia < 10 umol/L (11-32) Blood Gas Specimen Type Arterial Blood Gas Sample Site Left radial Blood Gas Patient Temperature 37.0 Arterial Blood Date Drawn [id number] Arterial Blood pH 7.466 (7.350-7.450) Arterial Blood Partial Pressure CO2 39.0 mmHg (32.0-45.0) Arterial Blood Partial Pressure O2 60.8 mmHg (83.0-108.0) Arterial Blood HCO3 27.5 mmol/L (21.0-28.0) Arterial Blood Oxygen Saturation 89.9 % (94.0-98.0) Arterial Blood Base Excess 3.6 mmol/L (-2.0-3.0) Arterial Blood Oxyhemoglobin 88.1 % (94.0-98.0) Arterial Blood Carboxyhemoglobin 1.5 % (0.5-1.5) Arterial Blood Methemoglobin 0.5 % (0.0-1.5) Enrique Test Yes Blood Gas Total Hemoglobin 13.40 g/dL (12.0-16.0) Blood Gas Modality Room air FiO2 % 21.0 Lactic Acid Level 1.4 mmol/L (0.4-2.0) Thyroid Stimulating Hormone (TSH) 1.63 uIU/mL (0.55-4.78) White Blood Count 5.2 10^3/uL (4.4-10.8) Red Blood Count 4.39 10^6/uL (4.0-5.20) Hemoglobin 13.7 g/dL (12.2-16.2) Hematocrit 40.7 % (36.0-46.0) Mean Corpuscular Volume 92.9 fL (80.0-100.0) Mean Corpuscular Hemoglobin 31.2 pg (28.0-32.0) Mean Corpuscular Hemoglobin Concent 33.6 g/dL (32.0-36.0) Red Cell Distribution Width 13.8 % (11.8-14.3) Platelet Count 232 10^3/uL (140-450) Mean Platelet Volume 9.4 fL (6.9-10.8) Neutrophils (%) (Auto) 64.7 % (37.0-80.0) Lymphocytes (%) (Auto) 22.6 % (10.0-50.0) Monocytes (%) (Auto) 11.5 % (0.0-12.0) Eosinophils (%) (Auto) 0.5 % (0.0-7.0) Basophils (%) (Auto) 0.7 % (0.0-2.0) Neutrophils # (Auto) 3.4 10 ^3/uL (1.6-8.6) Lymphocytes # (Auto) 1.2 10 ^3/uL (0.4-5.4) Monocytes # (Auto) 0.6 10 ^3/uL (0-1.3) Eosinophils # (Auto) 0 10 ^3/uL (0-0.8) Basophils # (Auto) 0 10 ^3/uL (0-0.2) Nucleated Red Blood Cells 0.0 % Sodium Level 140 mmol/L (136-145) Potassium Level 3.8 mmol/L (3.5-5.1) Chloride Level 105 mmol/L (98-107) Carbon Dioxide Level 27 mmol/L (20-31) Anion Gap 8 (5-15) Blood Urea Nitrogen 8 mg/dL (9-23) Creatinine 0.47 mg/dL (0.550-1.02) Glomerular Filtration Rate Calc 93 mL/min (>90) BUN/Creatinine Ratio 17.0 (10.0-20.0) Serum Glucose 154 mg/dL (74-106) Hemoglobin A1c 5.9 % A1C (<5.7) Calcium Level 8.8 mg/dL (8.7-10.4) Test 06/30/24 03:19 06/29/24 20:01 06/29/24 18:40 Influenza Type A Antigen Negative (Negative) Influenza Type B Antigen Negative (Negative) SARS-CoV-2 Antigen (Rapid) Negative (NEGATIVE) Troponin I High Sensitivity 6 ng/L (</=34) D-Dimer, Quantitative 1.59 mg/L FEU (0.0-0.49) B-Type Natriuretic Peptide 78.45 pg/mL (0-100) Other Laboratory Tests 06/30/24 03:59 Final Diagnosis/Problems List Acute hypoxic respiratory failure likely secondary to community-acquired Gram-positive/Gram-negative pneumonia Community acquired Gram-positive/Gram-negative pneumonia SIRS/Sepsis secondary to above Lactic acidosis Acute DVT of rt Leg Prediabetic, HbA1C 5.9% History of CVA with right-sided hemiparesis, dysarthria Hypertensive heart disease Discharge Disposition: Home Discharge Instruct/Medications Diet: Cardiac 2g Na,low cholest Activity: No Restrictions, As Tolerated Follow Up/Referral: Follow up with the DC clinic in 1 week Follow up with the PCP in 1 to 2 week. Medications: Doxycycline 100 mg 1 tab bid for 7 days. Eloquis 10 mg bid for 10 days followed by 5 mg bid for 3 to 6 months. Discharge Statement: "Patient was advised to return to the ER or call 911 if any headaches, dizziness, shortness of breath, chest pain, abdominal pain, bleeding, fevers, or worsening of medical condition. Patient was counseled about treatment plan, medications, possible side effects, patientverbalized understanding. All questions were answered to the best of my ability. This discharge took greater then 30 minutes in planning, reviewing documentation, counseling the patient, and discussing with other team members." ASSESSMENT ASSESSMENT Assessment Acute hypoxic respiratory failure likely secondary to community-acquired Gram-positive/Gram-negative pneumonia Community acquired Gram-positive/Gram-negative pneumonia SIRS/Sepsis secondary to above Lactic acidosis Acute DVT of rt Leg Prediabetic, HbA1C 5.9% History of CVA with right-sided hemiparesis, dysarthria Hypertensive heart disease EMILY LERA RESIDENT Jul 02, 2024 09:18
[2024-07-02 10:50] VITALS: O2SAT 94
[2024-07-02 11:14] VITALS: BP 109/64; PULSE 69; TEMP 37.2
--- NOTE | 2024-07-02 11:26 | DVHSR ---
APPROVED REPORT EXAM: Two-dimensional and M-mode echocardiogram with Doppler and color Doppler. Blood Pressure: 103/56 mmHg INDICATION EF RISK FACTORS Height: 68, Weight: 183 DIMENSIONS LVDd4.3 (3.8-5.7cm)LA (2D)5.2 (1.9-4.0cm)Aortic Root3.7 (2.0-3.7cm) LVDs3.1 (2.5-4.0cm)LA (MM) (1.9-4.0cm)Aortic Cusp Exc1.5 (1.5-2.0cm) EF (%) 56.0 (55-70%)Rt. Atrium5.6 (1.9-4.0cm)Asc. Aorta cm IVSd1.2 (0.7-1.1cm)RV (D) (1.8-2.4cm) PWd1.2 (0.7-1.1cm) Mitral Valve MitralMitral Stenosis E wave0.73m/sMV Mean GR.mmHg E/A ratio0.02D MVAcm2 Aortic Valve Aortic ValveAortic Stenosis V10.86m/Lina Mean GR.4mmHg V21.35m/Lina Peak GR.7mmHg LVOT Diameter2.2 (1.8-2.4cm)Doppler AVA2.42cm2 Pulmonic Valve V20.91m/s Tricuspid Valve TR Velocity2.61m/s [id number] LEFT VENTRICLE The left ventricle is of normal size. There is mild concentric left ventricular hypertrophy. Ejecti on fraction is normal and is estimated at 55-60%. There is no gross wall motion abnormalities. Apple tolic function is indeterminate as patient is in atrial fibrillation at time of the study. RIGHT VENTRICLE Mildly dilated in size. Systolic function appeared to be normal. ATRIA Severely dilated in size. Severely dilated in size. Likely normal. MITRAL VALVE Normal structure and function. There is trace mitral regurgitation. PULMONIC VALVE Likely normal. TRICUSPID VALVE Normal structure and function. There is mild tricuspid regurgitation. PA systolic pressure is estim ated at 30-35 mm Hg. AORTIC VALVE Normal structure and function. GREAT VESSELS Aortic root is of normal size. Proximal ascending aorta is not visualized. PERICARDIAL EFFUSION No significant pericardial effusion. IVC is of normal size and collapses normally with inspiration. Conclusion Normal left ventricular size and systolic function. Mild concentric left ventricular hypertrophy. Mildly dilated right ventricle with preserved systolic function. No hemodynamically significant valvular disease. Severe biatrial enlargement. PA systolic pressure is estimated at 30-35 mm Hg.
[2024-07-02 12:28] VITALS: BP 105/64; PULSE 77; RESP 16; TEMP 99.1; O2SAT 93
--- NOTE | 2024-07-02 21:01 | DVHDSRES ---
Discharge Summary Date of Admission Resident Creating Document: OLE LE RESIDENT Jun 29, 2024 at 22:12 Date of Discharge: Jul 02, 2024 Admitting Diagnosis Acute hypoxic respiratory failure due to possible Gram-positive/Gram-negative pneumonia Wounds: No wound was present Labs/Diagnostic Data: Laboratory Results Test 07/01/24 19:10 07/01/24 16:05 06/30/24 14:36 06/30/24 03:59 Ammonia < 10 umol/L (11-32) Blood Gas Specimen Type Arterial Blood Gas Sample Site Left radial Blood Gas Patient Temperature 37.0 Arterial Blood Date Drawn [id number] Arterial Blood pH 7.466 (7.350-7.450) Arterial Blood Partial Pressure CO2 39.0 mmHg (32.0-45.0) Arterial Blood Partial Pressure O2 60.8 mmHg (83.0-108.0) Arterial Blood HCO3 27.5 mmol/L (21.0-28.0) Arterial Blood Oxygen Saturation 89.9 % (94.0-98.0) Arterial Blood Base Excess 3.6 mmol/L (-2.0-3.0) Arterial Blood Oxyhemoglobin 88.1 % (94.0-98.0) Arterial Blood Carboxyhemoglobin 1.5 % (0.5-1.5) Arterial Blood Methemoglobin 0.5 % (0.0-1.5) Enrique Test Yes Blood Gas Total Hemoglobin 13.40 g/dL (12.0-16.0) Blood Gas Modality Room air FiO2 % 21.0 Lactic Acid Level 1.4 mmol/L (0.4-2.0) Thyroid Stimulating Hormone (TSH) 1.63 uIU/mL (0.55-4.78) White Blood Count 5.2 10^3/uL (4.4-10.8) Red Blood Count 4.39 10^6/uL (4.0-5.20) Hemoglobin 13.7 g/dL (12.2-16.2) Hematocrit 40.7 % (36.0-46.0) Mean Corpuscular Volume 92.9 fL (80.0-100.0) Mean Corpuscular Hemoglobin 31.2 pg (28.0-32.0) Mean Corpuscular Hemoglobin Concent 33.6 g/dL (32.0-36.0) Red Cell Distribution Width 13.8 % (11.8-14.3) Platelet Count 232 10^3/uL (140-450) Mean Platelet Volume 9.4 fL (6.9-10.8) Neutrophils (%) (Auto) 64.7 % (37.0-80.0) Lymphocytes (%) (Auto) 22.6 % (10.0-50.0) Monocytes (%) (Auto) 11.5 % (0.0-12.0) Eosinophils (%) (Auto) 0.5 % (0.0-7.0) Basophils (%) (Auto) 0.7 % (0.0-2.0) Neutrophils # (Auto) 3.4 10 ^3/uL (1.6-8.6) Lymphocytes # (Auto) 1.2 10 ^3/uL (0.4-5.4) Monocytes # (Auto) 0.6 10 ^3/uL (0-1.3) Eosinophils # (Auto) 0 10 ^3/uL (0-0.8) Basophils # (Auto) 0 10 ^3/uL (0-0.2) Nucleated Red Blood Cells 0.0 % Sodium Level 140 mmol/L (136-145) Potassium Level 3.8 mmol/L (3.5-5.1) Chloride Level 105 mmol/L (98-107) Carbon Dioxide Level 27 mmol/L (20-31) Anion Gap 8 (5-15) Blood Urea Nitrogen 8 mg/dL (9-23) Creatinine 0.47 mg/dL (0.550-1.02) Glomerular Filtration Rate Calc 93 mL/min (>90) BUN/Creatinine Ratio 17.0 (10.0-20.0) Serum Glucose 154 mg/dL (74-106) Hemoglobin A1c 5.9 % A1C (<5.7) Calcium Level 8.8 mg/dL (8.7-10.4) Test 06/30/24 03:19 06/29/24 20:01 06/29/24 18:40 Influenza Type A Antigen Negative (Negative) Influenza Type B Antigen Negative (Negative) SARS-CoV-2 Antigen (Rapid) Negative (NEGATIVE) Troponin I High Sensitivity 6 ng/L (</=34) D-Dimer, Quantitative 1.59 mg/L FEU (0.0-0.49) B-Type Natriuretic Peptide 78.45 pg/mL (0-100) Other Laboratory Tests 06/30/24 03:59 Brief Hx & Hospital Course: This is a 83 years old bed-bound female past medical history of hypertension, dyslipidemia, CVA with right-sided weakness to the ED for evaluation of shortness of Breath. Patient reports a two week history of worsening shortness for breath and with associated nonproductive cough and left sided non radiating chest pain. 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 Hospital course: Initially patient was on 3 L oxygen with saturation 97% and titrated down to room air. Chest xray revealed Pulmonary venous congestion. Doppler scan of the lower extremity revealed nonocclusive thrombus in the right popliteal vein. patient was treated IV ceftriaxone 1 g daily and doxycycline 100 mg p.o. b.i.d. for possible atypical pneumonia and Lovenox 1 milligram/kg body weight 12 hourly. BNP was normal and echo revealed ejection fraction 55% to 60%. Discharge plan was discussed with the and the patient and all questions were answered. Patient is being discharged to home and resume home health service. Discharge disposition: Home Medication: doxycycline 100 mg p.o. b.i.d. for 7 days, aspirin 81 mg daily, atorvastatin 20 mg at hs, Eliquis 10 mg b.i.d. for 7 days followed by Eliquis 5 mg b.i.d. for 1 month, pepcid 20 mg p.o. daily for 14 days, metoprolol tartrate 12.5 mg p.o. b.i.d. for 1 month and lisinopril 10 mg daily for 1 month. Follow up: Follow up with DC clinic in 1 week and follow up with PCP in 1-2 weeks Consults/Reason for consult No consultation was done Operations or Procedures EXAM: CT HEAD WITHOUT CONTRAST HISTORY: Altered mental status COMPARISON: None TECHNIQUE: Axial images of the head were obtained and reformatted in coronal and sagittal planes. All CT scans at this medical facility are performed using dose modulation techniques as appropriate to a performed exam including the following: Automated exposure control was utilized; adjustment of the MA and/or KV according to patient size; and use of iterative reconstruction technique. CT Dose: CTDI volume is 57 mGy. Dose-length product is 1123 mGy*cm FINDINGS: There is no evidence of acute intracranial hemorrhage, mass, mass effect midline shift. There is no hydrocephalus or extra-axial fluid collection. There is a chronic infarct extending from the left hairston radiata into the left basal ganglia with mild ex vacuo dilatation of the left lateral ventricle. There are moderate chronic small-vessel white matter ischemic changes. The visualized paranasal sinuses and mastoid air cells are clear. The calvarium is intact. IMPRESSION: 1. No acute intracranial process. 2. Chronic ischemic changes as described above. EXAM: CT CT ANGIO CHEST CONTRAST History: To exclude PE Comparison Study: None available TECHNIQUE: A digital lock maintenance supervisor image was obtained. During the uneventful, intravenous administration of contrast material, multislice data acquisition was obtained through the chest. 3-D postprocessing is performed by technologist including MIP imaging Radiation Dose : CTDI vol 29.6 mGy, DLP 715.41 mGy*cm. Findings: Lungs: Bilateral lower lobe traction bronchiectasis, left greater than right. Pleura: Unremarkable Heart/Great vessels: Cardiomegaly. No pericardial effusion. No pulmonary embolism, aneurysm, or dissection. Mediastinum: Small hiatal hernia. Soft tissues/Bones: Moderate multilevel degenerative changes of the thoracic spine The partially visualized upper abdomen is within normal limits. Impression: 1. No evidence of pulmonary embolism, aortic aneurysm, or dissection. 2. Cardiomegaly BILATERAL LOWER EXTREMITY VENOUS DOPPLER CLINICAL HISTORY: To exclude DVT Technique: Duplex Doppler evaluation of the deep venous systems of both lower extremities from the common femoral veins to the popliteal veins including color Doppler and spectral/pulsed waveform analysis was performed. COMPARISON: None FINDINGS: There is nonocclusive thrombus in the right popliteal vein which is incompletely compressible. The right and left common femoral, superficial femoral, posterior tibial and left popliteal, veins appear patent with normal augmentation, phasicity, compressibility. IMPRESSION: 1. Nonocclusive thrombus in the right popliteal vein. 2. There is no sonographic evidence for DVT in the right lower extremity. EXAM: XR Chest, 1 View CLINICAL INDICATION: sob TECHNIQUE: Frontal view of the chest. COMPARISON: None FINDINGS: LUNGS AND PLEURAL SPACES: Pulmonary venous congestion. No consolidation. No pneumothorax. HEART: Unremarkable. No cardiomegaly. MEDIASTINUM: Unremarkable. Normal mediastinal contour. BONES/JOINTS: Unremarkable. No acute fracture. OTHER FINDINGS: . . IMPRESSION: Pulmonary venous congestion. Condition at Discharge: Stable Final Diagnosis/Problems List Acute hypoxic respiratory failure likely secondary to community-acquired Gram-positive/Gram-negative pneumonia Community acquired Gram-positive/Gram-negative pneumonia SIRS/Sepsis secondary to above Lactic acidosis Acute DVT of rt Leg Prediabetic, HbA1C 5.9% History of CVA with right-sided hemiparesis, dysarthria Hypertensive heart disease Discharge Disposition: Home Discharge Instruct/Medications Diet: Cardiac 2g Na,low cholest Activity: No Restrictions, As Tolerated Follow Up/Referral: Follow up with the DC clinic in 1 week Follow up with the PCP in 1 to 2 week. Medications: Doxycycline 100 mg 1 tab bid for 7 days. Eloquis 10 mg bid for 10 days followed by 5 mg bid for 3 to 6 months. Discharge Statement: "Patient was advised to return to the ER or call 911 if any headaches, dizziness, shortness of breath, chest pain, abdominal pain, bleeding, fevers, or worsening of medical condition. Patient was counseled about treatment plan, medications, possible side effects, patientverbalized understanding. All questions were answered to the best of my ability. This discharge took greater then 30 minutes in planning, reviewing documentation, counseling the patient, and discussing with other team members." ASSESSMENT ASSESSMENT Assessment Acute hypoxic respiratory failure likely secondary to community-acquired Gram-positive/Gram-negative pneumonia Community acquired Gram-positive/Gram-negative pneumonia SIRS/Sepsis secondary to above Lactic acidosis Acute DVT of rt Leg Prediabetic, HbA1C 5.9% History of CVA with right-sided hemiparesis, dysarthria Hypertensive heart disease Date of Service: Jul 02, 2024 Billing Provider: IFTIKHAR MORIN MD Common Visit Codes: [id number] DISCH DAY >30min OLE LE RESIDENT Jul 02, 2024 21:01 IFTIKHAR MORIN MD Jul 06, 2024 16:43
== END 2024-07-02 13:21 | disposition home health service (06) | DRG 720 ==
LOC: EDBD 16:22 → ER 16:28 → OVERFLOW 22:12 → CENTRAL 06-30 23:23
PROVIDERS: ADMIT Student in an Organized Health Care Education/Training Program; ATTEND Student in an Organized Health Care Education/Training Program
DX: A41.59 Other Gram-negative sepsis (principal); J96.01 Acute respiratory failure with hypoxia; J15.69 Pneumonia due to other Gram-negative bacteria; E87.20 Acidosis, unspecified; J15.9 Unspecified bacterial pneumonia; I11.0 Hypertensive heart disease with heart failure; I82.433 Acute embolism and thrombosis of popliteal vein, bilateral; I50.9 Heart failure, unspecified; I69.351 Hemiplegia and hemiparesis following cerebral infarction affecting right dominant side; Z20.822 Contact with and (suspected) exposure to COVID-19; J98.4 Other disorders of lung; I48.91 Unspecified atrial fibrillation; E78.5 Hyperlipidemia, unspecified; Z74.01 Bed confinement status; Z79.899 Other long term (current) drug therapy
CPT/HCPCS: 36415; 36600; 70450; 71045; 71275; 80048; 82140; 82805; 83036; 83605; 83880; 84443; 84484; 85025; 85379; 87040; 87426; 87804; 93005; 93306; 93970; 94640; 97110; 97163; 97530; G0378